=== PATIENT | female | born 1955 | race Caucasian/White ===

== ENCOUNTER 2018-10-03 13:37 | Outpatient (REF) | payer BC, SELFPAY ==
[2018-10-03 18:56] LABS: Anion Gap 6.9 mmol/L (3-11); BUN 23 mg/dL (7-18); CO2 29.1 mmol/L (21.0-32.0); CREATININE 0.97 mg/dL (0.55-1.02); Chloride 104 mmol/L (98-107); Estimated GFR 58.58 (mL/min/1.73m2); Glucose 109 mg/dL (70-100); LDL CHOLESTEROL 145 mg/dL (<100); Sodium 140 mmol/L (136-145)
[2018-10-03 18:57] LABS: Hemoglobin A1C 6.4 % (4.5-6.2)
== END 2018-10-03 13:57 ==
LOC: NCHCN 13:37
PROVIDERS: Visit Provider Internal Medicine
DX: I10 Essential (primary) hypertension (principal)
CPT/HCPCS: 80048; 83721; 83036

== ENCOUNTER 2021-08-25 20:32 | Outpatient (REF) | payer BC, SELFPAY ==
[2021-08-25 22:29] LABS: Hemoglobin A1C 6.6 % (<5.7)
[2021-08-25 22:35] LABS: BUN 28 mg/dL (7-18); CREATININE 1.1 mg/dL (0.55-1.02); Calcium 8.7 mg/dL (8.5-10.1); Calculated LDL 144 mg/dL (<100); Chloride 104 mmol/L (98-107); Cholesterol 219 mg/dL (<200); Estimated GFR 50.17 (mL/min/1.73m2); Glucose 96 mg/dL (74-106); HDL Cholesterol 50 mg/dL (40-60); Potassium 4.5 mmol/L (3.5-5.1); Sodium 140 mmol/L (136-145); TSH 1.61 uIU/mL (0.36-3.74); Triglyceride 129 mg/dL (<150)
== END 2021-08-25 20:33 | disposition home or self-care (01) ==
LOC: NCHCN 20:32
PROVIDERS: Visit Provider Internal Medicine
DX: E11.9 Type 2 diabetes mellitus without complications (principal); I10 Essential (primary) hypertension; E66.9 Obesity, unspecified
CPT/HCPCS: 80048; 80061; 83036; 84443

== ENCOUNTER 2022-08-17 13:24 | Outpatient (REF) | payer BC, SELFPAY ==
[2022-08-17 19:38] LABS: Anion Gap 10.5 mmol/L (3-11); BUN 21 mg/dL (7-18); CO2 26.5 mmol/L (21.0-32.0); Calcium 9.5 mg/dL (8.5-10.1); Calculated LDL 83 mg/dL (<100); Chloride 105 mmol/L (98-107); Cholesterol 152 mg/dL (<200); Estimated GFR 62.91 (mL/min/1.73m2); Glucose 105 mg/dL (74-106); HDL Cholesterol 56 mg/dL (40-60); Potassium 4.2 mmol/L (3.5-5.1); Sodium 142 mmol/L (136-145); TSH 2.09 uIU/mL (0.36-3.74); Triglyceride 67 mg/dL (<150)
[2022-08-18 10:37] LABS: COMMENT (LAB VIEW ONLY) 273.24 mg/dL; Microalb ug/mg Crea 4.2 ug/mg Cr
== END 2022-08-17 13:25 | disposition home or self-care (01) ==
LOC: NCHCN 13:24
PROVIDERS: Visit Provider Internal Medicine
DX: E11.9 Type 2 diabetes mellitus without complications (principal); I10 Essential (primary) hypertension; E66.8 Other obesity
CPT/HCPCS: 80048; 80061; 82043; 82570; 84443

== ENCOUNTER 2022-12-18 14:37 | Outpatient (REF) | payer BC, SELFPAY ==
[2022-12-18 19:09] LABS: Bilirubin Large (Negative); Blood Trace-intact (Negative); Clarity Clear (Clear); Glucose 100 mg/dL (Negative); Ketones Trace mg/dL (Negative); Leukocyte Esterase Small (Negative); Nitrite Negative (Negative); pH 5.5 (5-8)
[2022-12-18 19:11] LABS: Bacteria Few HPF (Negative); C & S Indicated? Yes; Casts Negative LPF (Negative); Crystals Negative HPF (Negative); Epithelial Cells Few HPF (Negative); Mucus Negative (Negative)
[2022-12-18 19:24] LABS: ALT 434 U/L (14-59); AST 207 U/L (15-37); Albumin 3.4 g/dL (3.4-5.0); Alkaline Phosphatase 298 U/L (46-116); Anion Gap 7.6 mmol/L (3-11); BUN 12 mg/dL (7-18); CO2 29.4 mmol/L (21.0-32.0); CREATININE 1.1 mg/dL (0.55-1.02); Calcium 9.3 mg/dL (8.5-10.1); Chloride 100 mmol/L (98-107); Estimated GFR 55.76 (mL/min/1.73m2); Glucose 173 mg/dL (74-106); Potassium 4.1 mmol/L (3.5-5.1); Sodium 137 mmol/L (136-145); Total Protein 8.1 g/dL (6.4-8.2)
== END 2022-12-18 14:38 | disposition home or self-care (01) ==
LOC: NCHCN 14:37
PROVIDERS: PCP Nurse Practitioner Family; Visit Provider Nurse Practitioner Family
DX: R10.13 Epigastric pain (principal); R35.0 Frequency of micturition
CPT/HCPCS: 80048; 80076; 81003; 81015; 87086

== ENCOUNTER 2023-11-12 15:16 | Outpatient (REF) | payer BC, SELFPAY ==
[2023-11-12 19:23] LABS: ALT 28 U/L (14-59); Anion Gap 5.8 mmol/L (3-11); BUN 27 mg/dL (7-18); CO2 29.2 mmol/L (21.0-32.0); Calcium 9.1 mg/dL (8.5-10.1); Calculated LDL 81 mg/dL (<100); Chloride 106 mmol/L (98-107); Cholesterol 146 mg/dL (<200); Estimated GFR 62.13 (mL/min/1.73m2); Glucose 132 mg/dL (74-106); HDL Cholesterol 55 mg/dL (40-60); Potassium 4.3 mmol/L (3.5-5.1); Sodium 141 mmol/L (136-145); Triglyceride 50 mg/dL (<150)
[2023-11-12 19:37] LABS: Creatine Kinase 159 U/L (26-192)
== END 2023-11-12 15:17 | disposition home or self-care (01) ==
LOC: NCHCN 15:16
PROVIDERS: PCP Nurse Practitioner Family; Visit Provider Internal Medicine
DX: I10 Essential (primary) hypertension (principal)
CPT/HCPCS: 80048; 80061; 82550; 84460

== ENCOUNTER 2024-11-06 13:03 | Outpatient (REF) | payer BC, SELFPAY ==
[2024-11-06 20:30] LABS: ALT 30 U/L (14-59); Anion Gap 6.8 mmol/L (3-11); BUN 32 mg/dL (7-18); CO2 28.2 mmol/L (21.0-32.0); Calcium 9.6 mg/dL (8.5-10.1); Calculated LDL 114 mg/dL (<100); Chloride 103 mmol/L (98-107); Cholesterol 191 mg/dL (<200); Estimated GFR 61.75 (mL/min/1.73m2); Glucose 103 mg/dL (74-106); HDL Cholesterol 66 mg/dL (>or=50); Potassium 4.6 mmol/L (3.5-5.1); Sodium 138 mmol/L (136-145); Triglyceride 56 mg/dL (<150)
[2024-11-06 20:40] LABS: Creatine Kinase 185 U/L (26-192)
[2024-11-08 03:57] LABS: Hepatitis C Ab w Rflx HCV PCR Negative (Negative)
[2024-11-08 04:03] LABS: HIV-1/2 Ag & Ab Screen Negative (Negative)
== END 2024-11-06 13:04 | disposition home or self-care (01) ==
LOC: NCHCN 13:03
PROVIDERS: PCP Nurse Practitioner Family; Visit Provider Internal Medicine
DX: I10 Essential (primary) hypertension (principal); Z11.4 Encounter for screening for human immunodeficiency virus [HIV]
CPT/HCPCS: 80048; 80061; 82550; 86803; 87389; 84460